=== PATIENT | male | born 1980 | race Caucasian/White ===

== ENCOUNTER 2018-11-04 10:32 | Emergency (ER) | payer SELFPAY ==
[2013-10-13 21:54] VITALS: BP 132/58
[2018-11-04] MEDS ORDERED: HYDROcodone /APAP 5/325 1 EACH TABLET ONE (10:50)
== END 2018-11-04 11:03 | disposition home or self-care (01) ==
LOC: ED 10:32
DX: K02.9 Dental caries, unspecified (principal)
CPT/HCPCS: 99283; A9270